=== PATIENT | male | born 1960 | race Caucasian/White ===

== ENCOUNTER 2024-04-22 15:40 | Emergency (ER) | payer MEDICAID ==
[~2024-04-22] VITALS: Ht 182.9 cm; Wt 63.6 kg
[2024-04-22 15:44] VITALS: BP 112/72; PULSE 97; RESP 22; TEMP 98.5; O2SAT 91
[2024-04-22 16:32] LABS: BASOPHILS % (AUTO) 0.3 % (0-1); EOSINOPHILS % (AUTO) 0.1 % (0-6); HEMATOCRIT 44.2 % (42.0-52.0); HEMOGLOBIN 14.8 g/dl (14.0-17.9); LYMPHOCYTES # (AUTO) 0.7 X10'3 (1.1-4.8); LYMPHOCYTES % (AUTO) 6.6 % (21-51); MEAN CORPUSCULAR HEMOGLOBIN 33.1 PG (27.0-31.0); MEAN CORPUSCULAR HGB CONC 33.5 g/dL (33.0-36.5); MEAN CORPUSCULAR VOLUME 98.8 FL (78-98); MEAN PLATELET VOLUME 9.4 FL (7.4-10.4); MONOCYTES # (AUTO) 1.3 X10'3 (0-0.9); MONOCYTES % (AUTO) 12.2 % (2-12); NEUTROPHILS # (AUTO) 8.4 X10'3 (1.8-7.7); NEUTROPHILS % (AUTO) 80.8 % (42-75); PLATELET COUNT 295 X10'3 (140-440); RED BLOOD COUNT 4.47 X10'6 (4.70-6.10); RED CELL DISTRIBUTION WIDTH 13.6 % (11.5-14.5); WHITE BLOOD COUNT 10.4 X10'3 (4.5-11.0)
[2024-04-22 16:42] LABS: ALANINE AMINOTRANSFERASE 388 U/L (12-78); ALBUMIN 3.4 G/DL (3.4-5.0); ALBUMIN/GLOBULIN RATIO 0.8 (1.1-1.5); ALKALINE PHOSPHATASE 425 IU/L (46-116); ANION GAP 5 (8-16); ASPARTATE AMINO TRANSFERASE 314 U/L (10-37); BILIRUBIN,TOTAL 0.9 MG/DL (0.1-1.0); BLOOD UREA NITROGEN 11 MG/DL (7-18); CALCIUM 9.8 MG/DL (8.5-10.1); CHLORIDE 99 MMOL/L (99-107); CREATININE 0.58 MG/DL (0.60-1.10); GLUCOSE 135 MG/DL (70-104); POTASSIUM 4.4 MMOL/L (3.5-5.1); SODIUM 133 MMOL/L (135-145); TOTAL CARBON DIOXIDE 28.8 MMOL/L (24-32); TOTAL PROTEIN 7.7 G/DL (6.4-8.2); eCRCL 116 ML/MIN; eGFR > 90 ML/MIN
[2024-04-22 16:53] LABS: FREE T4 (FREE THYROXINE) 1.18 NG/DL (0.73-1.40); PRO BRAIN NATRIURETIC PEPTIDE 449 PG/ML (0-125); THYROID STIMULATING HORMONE 0.77 ulU/ml (0.34-4.50)
[2024-04-22 16:53] LABS: APTT 30 SECONDS (22-32); PROTHROMBIN TIME 10.3 SECONDS (9.0-12.0)
[2024-04-23] MEDS ORDERED: BUPR150T8 PO (12:11)
[2024-04-23] MEDS ORDERED: CLON-850 PO (12:11)
[2024-04-23] MEDS ORDERED: BUPR1PAT TOP (12:16)
== END 2024-04-22 18:47 | disposition left against medical advice (07) ==
LOC: ER 15:41
DX: R06.02 Shortness of breath (principal); J44.9 Chronic obstructive pulmonary disease, unspecified; Z88.0 Allergy status to penicillin; Z53.21 Procedure and treatment not carried out due to patient leaving prior to being seen by health care provider
CPT/HCPCS: 36415; 71045; 80053; 83880; 84439; 84443; 84484; 85025; 85610; 85730; 93005

== ENCOUNTER 2024-04-22 22:55 | Inpatient (IN) | payer MEDICAID ==
[~2024-04-22] VITALS: Ht 182.9 cm; Wt 65.9 kg
[2024-04-23] VITALS (18 sets, daily range): BP systolic 110–129; BP diastolic 63–77; PULSE 61–104; RESP 16–22; TEMP 97.4–98.5; O2SAT 92–98
[2024-04-23] MEDS: ipratropium/albuterol 3ml nebule NEB ONE (00:42)
[2024-04-23 00:45] LABS: BASOPHILS % (AUTO) 0.1 % (0-1); EOSINOPHILS % (AUTO) 0 % (0-6); HEMOGLOBIN 14.1 g/dl (14.0-17.9); LYMPHOCYTES # (AUTO) 0.5 X10'3 (1.1-4.8); MEAN CORPUSCULAR HEMOGLOBIN 32.8 PG (27.0-31.0); MEAN CORPUSCULAR HGB CONC 33.5 g/dL (33.0-36.5); MEAN CORPUSCULAR VOLUME 97.9 FL (78-98); MEAN PLATELET VOLUME 8.6 FL (7.4-10.4); MONOCYTES # (AUTO) 1.9 X10'3 (0-0.9); MONOCYTES % (AUTO) 17.8 % (2-12); NEUTROPHILS # (AUTO) 8.2 X10'3 (1.8-7.7); NEUTROPHILS % (AUTO) 77.1 % (42-75); PLATELET COUNT 274 X10'3 (140-440); RED BLOOD COUNT 4.29 X10'6 (4.70-6.10); RED CELL DISTRIBUTION WIDTH 13.5 % (11.5-14.5); WHITE BLOOD COUNT 10.7 X10'3 (4.5-11.0)
[2024-04-23 01:04] LABS: ALBUMIN 3.2 G/DL (3.4-5.0); ANION GAP 9 (8-16); BLOOD UREA NITROGEN 16 MG/DL (7-18); BUN/CREATININE RATIO 24.2 (10.0-20.0); CALCIUM 9.5 MG/DL (8.5-10.1); CHLORIDE 99 MMOL/L (99-107); CREATININE 0.66 MG/DL (0.60-1.10); GLUCOSE 141 MG/DL (70-104); POTASSIUM 4.1 MMOL/L (3.5-5.1); PRO BRAIN NATRIURETIC PEPTIDE 363 PG/ML (0-125); SODIUM 135 MMOL/L (135-145); TOTAL CARBON DIOXIDE 27.5 MMOL/L (24-32); eCRCL 105 ML/MIN; eGFR > 90 ML/MIN
[2024-04-23] MEDS: methylPREDNISolone sod succ 125mg/2ml vial IV ONE (01:13)
[2024-04-23 01:19] LABS: PLATELET ESTIMATE NORMAL; TOTAL CELLS COUNTED 100
[2024-04-23] MEDS: CefTRIAXone/D5W-Rocephin 1gm 50 ML IV ONE (02:18)
[2024-04-23] MEDS: normal saline 1000ml 1,000 ML IV ONE (02:19)
[2024-04-23] MEDS ORDERED: morphine 2 MG/ML inj. syringe IV PRN (02:20)
[2024-04-23] MEDS: PERFLUTREN PROTEIN-A MICROSPHR (Optison) 0.22 MG/ML 3ML VIAL IV ONE ×2 (02:20→07:40)
[2024-04-23] MEDS ORDERED: potassium Cl 40MEQ/1/2NS 520ml 520 ML IV PRN (02:20)
[2024-04-23] MEDS ORDERED: magnesium sulf-water 4G/100mL 100 ML IV PRN (02:20)
[2024-04-23] MEDS ORDERED: HYDROcodone/acetaminophen 5mg/325mg tablet PO PRN (02:20)
[2024-04-23] MEDS ORDERED: magnesium Cl slow-release 64mg tablet PO PRN (02:20)
[2024-04-23] MEDS ORDERED: potassium Cl 20 mEq SR tablet PO PRN ×2 (02:20)
[2024-04-23] MEDS ORDERED: magnesium sulf-water 2g/50mL 50 ML IV PRN (02:20)
[2024-04-23] MEDS ORDERED: ondansetron/PF 4mg/2ml inj IV PRN (02:20)
[2024-04-23] MEDS ORDERED: mag hydrox/Alum hydrox/simeth 30ml oral suspension PO PRN (02:20)
[2024-04-23] MEDS ORDERED: acetaminophen 325mg tablet PO PRN ×2 (02:20)
[2024-04-23] MEDS ORDERED: magnesium hydroxide 30ml (MOM) UD suspension PO PRN (02:20)
[2024-04-23 02:57] LABS: D-DIMER 0.88 MG/L FEU (0-0.50)
[2024-04-23 03:00] LABS: HEMOGLOBIN A1C 5.1 % (4.5-6.2)
[2024-04-23] MEDS: normal saline 1000ml 1,000 ML IV SCH (03:31)
[2024-04-23 03:36] LABS: POTASSIUM 4.1 MMOL/L (3.5-5.1)
[2024-04-23 05:28] LABS: BILIRUBIN,URINE SMALL (Neg); CLARITY,URINE SLIGHTLY CLOUDY (Clear); COLOR,URINE YELLOW (Yellow); GLUCOSE, URINE NEGATIVE (Neg); KETONES,URINE TRACE mg/dl (Neg); LEUKOCYTE ESTERASE ,URINE NEGATIVE (Neg); NITRITES, URINE NEGATIVE (Neg); OCCULT BLOOD,URINE NEGATIVE (Neg); PROTEIN,URINE 100 mg/dl (Neg); UA COLLECTION TYPE URINAL
[2024-04-23 05:37] LABS: COARSE GRANULAR CAST 0-3 /LPF (NEGATIVE); SQUAMOUS EPITHELIAL CELL,UR FEW /LPF (FEW)
[2024-04-23 05:39] LABS: BACTERIA,URINE FEW /HPF (Neg); RBC,URINE NONE SEEN /HPF (0-2); WBC,URINE 0-4 /HPF (0-4)
[2024-04-23] MEDS: ipratropium/albuterol 3ml nebule NEB SCH (07:04)
[2024-04-23] MEDS ORDERED: ipratropium/albuterol 3ml nebule NEB PRN (07:35)
[2024-04-23] MEDS: K and/or MAG REPLACEMENT MC SCH (08:00)
[2024-04-23] MEDS ORDERED: methylPREDNISolone sod succ 125mg/2ml vial IV SCH ×2 (08:00)
[2024-04-23] MEDS: enoxaparin 40mg/0.4ml syringe SUBCUT SCH (08:00)
[2024-04-23] MEDS: guaiFENesin ER 600mg tablet PO SCH (10:10)
[2024-04-23] MEDS: methylPREDNISolone sod succ 125mg/2ml vial IV SCH (10:10)
[2024-04-23] MEDS: azithromycin/NS 500mg/250ml 250 ML IV SCH (10:10)
[2024-04-23] MEDS: docusate sod 100mg capsule PO SCH (10:10)
[2024-04-23] MEDS ORDERED: CLON-850 PO (12:11)
[2024-04-23] MEDS ORDERED: BUPR150T8 PO (12:11)
[2024-04-23] MEDS ORDERED: BUPR1PAT TOP (12:16)
[2024-04-23] MEDS: HYDROcodone/acetaminophen 10/325mg tab PO PRN (15:41)
[2024-04-23] MEDS: CefTRIAXone/D5W-Rocephin 1gm 50 ML IV SCH (20:23)
[2024-04-24] VITALS (18 sets, daily range): BP systolic 104–141; BP diastolic 61–68; PULSE 70–131; RESP 15–18; TEMP 97.1–98.6; O2SAT 16–97
[2024-04-24 05:42] LABS: BASOPHILS % (AUTO) 0.1 % (0-1); EOSINOPHILS % (AUTO) 0.1 % (0-6); HEMATOCRIT 35.7 % (42.0-52.0); HEMOGLOBIN 11.9 g/dl (14.0-17.9); LYMPHOCYTES # (AUTO) 1.3 X10'3 (1.1-4.8); LYMPHOCYTES % (AUTO) 15.9 % (21-51); MEAN CORPUSCULAR HEMOGLOBIN 32.6 PG (27.0-31.0); MEAN CORPUSCULAR HGB CONC 33.3 g/dL (33.0-36.5); MEAN CORPUSCULAR VOLUME 97.8 FL (78-98); MEAN PLATELET VOLUME 8.6 FL (7.4-10.4); MONOCYTES # (AUTO) 1.2 X10'3 (0-0.9); MONOCYTES % (AUTO) 14.6 % (2-12); NEUTROPHILS # (AUTO) 5.7 X10'3 (1.8-7.7); NEUTROPHILS % (AUTO) 69.3 % (42-75); PLATELET COUNT 260 X10'3 (140-440); RED BLOOD COUNT 3.65 X10'6 (4.70-6.10); RED CELL DISTRIBUTION WIDTH 13.4 % (11.5-14.5); WHITE BLOOD COUNT 8.3 X10'3 (4.5-11.0)
[2024-04-24 05:48] LABS: PROTHROMBIN TIME 9.6 SECONDS (9.0-12.0)
[2024-04-24 05:58] LABS: ALANINE AMINOTRANSFERASE 220 U/L (12-78); ALBUMIN 2.3 G/DL (3.4-5.0); ALBUMIN/GLOBULIN RATIO 0.7 (1.1-1.5); ALKALINE PHOSPHATASE 275 IU/L (46-116); ANION GAP 6 (8-16); ASPARTATE AMINO TRANSFERASE 87 U/L (10-37); BILIRUBIN,TOTAL 0.3 MG/DL (0.1-1.0); BLOOD UREA NITROGEN 16 MG/DL (7-18); BUN/CREATININE RATIO 30.2 (10.0-20.0); CALCIUM 8.9 MG/DL (8.5-10.1); CHLORIDE 104 MMOL/L (99-107); CHOL/HDL RATIO 2.5 (0.00-4.99); CHOLESTEROL 148 MG/DL (0-200); CREATININE 0.53 MG/DL (0.60-1.10); GLUCOSE 146 MG/DL (70-104); HDL CHOLESTEROL 60 MG/DL (35-60); LDL CHOLESTEROL 55 MG/DL (50-100); MAGNESIUM 1.8 MG/DL (1.5-2.4); PHOSPHORUS 2.7 MG/DL (2.3-4.5); SODIUM 138 MMOL/L (135-145); TOTAL CARBON DIOXIDE 27.6 MMOL/L (24-32); TOTAL PROTEIN 5.8 G/DL (6.4-8.2); TRIGLYCERIDES 46 MG/DL (20-135); eCRCL 131 ML/MIN; eGFR > 90 ML/MIN
[2024-04-24 06:11] LABS: INR 0.9 INR
[2024-04-24] MEDS: albuterol 2.5 MG/3 ML nebule NEB PRN (16:28)
[2024-04-24] MEDS: pantoprazole 40mg Tablet.DR PO SCH (19:26)
[2024-04-24] MEDS ORDERED: buPROPion SR 150mg tablet PO SCH (22:20)
[2024-04-24] MEDS: clonazePAM 1mg tablet PO SCH (22:30)
[2024-04-25] VITALS (14 sets, daily range): BP systolic 96–133; BP diastolic 52–82; PULSE 67–141; RESP 15–20; TEMP 97.4–98; O2SAT 90–94
[2024-04-25 06:41] LABS: INR 0.9 INR; PROTHROMBIN TIME 9.8 SECONDS (9.0-12.0)
[2024-04-25 06:50] LABS: BASOPHILS % (AUTO) 0.1 % (0-1); EOSINOPHILS # (AUTO) 0.1 X10'3 (0-0.9); HEMATOCRIT 36.4 % (42.0-52.0); HEMOGLOBIN 11.9 g/dl (14.0-17.9); LYMPHOCYTES # (AUTO) 2.6 X10'3 (1.1-4.8); LYMPHOCYTES % (AUTO) 31.7 % (21-51); MEAN CORPUSCULAR HEMOGLOBIN 32.3 PG (27.0-31.0); MEAN CORPUSCULAR HGB CONC 32.7 g/dL (33.0-36.5); MEAN CORPUSCULAR VOLUME 98.7 FL (78-98); MEAN PLATELET VOLUME 8.6 FL (7.4-10.4); MONOCYTES % (AUTO) 12.9 % (2-12); NEUTROPHILS # (AUTO) 4.4 X10'3 (1.8-7.7); NEUTROPHILS % (AUTO) 54.3 % (42-75); PLATELET COUNT 310 X10'3 (140-440); RED BLOOD COUNT 3.69 X10'6 (4.70-6.10); RED CELL DISTRIBUTION WIDTH 13.4 % (11.5-14.5); WHITE BLOOD COUNT 8.1 X10'3 (4.5-11.0)
[2024-04-25 07:03] LABS: ALBUMIN 2.3 G/DL (3.4-5.0); ANION GAP 4 (8-16); BLOOD UREA NITROGEN 12 MG/DL (7-18); BUN/CREATININE RATIO 24.5 (10.0-20.0); CALCIUM 8.8 MG/DL (8.5-10.1); CHLORIDE 105 MMOL/L (99-107); CREATININE 0.49 MG/DL (0.60-1.10); GLUCOSE 91 MG/DL (70-104); MAGNESIUM 1.7 MG/DL (1.5-2.4); PHOSPHORUS 2.8 MG/DL (2.3-4.5); SODIUM 140 MMOL/L (135-145); TOTAL CARBON DIOXIDE 30.9 MMOL/L (24-32); eCRCL 142 ML/MIN; eGFR > 90 ML/MIN
[2024-04-25] MEDS ORDERED: magnesium sulf-water 4G/100mL 100 ML IV PRN (07:50)
[2024-04-25] MEDS ORDERED: magnesium Cl slow-release 64mg tablet PO PRN ×2 (07:50)
[2024-04-25] MEDS ORDERED: magnesium sulf-water 2g/50mL 50 ML IV PRN (07:50)
[2024-04-25] MEDS ORDERED: potassium Cl 20 mEq SR tablet PO PRN ×4 (07:50)
[2024-04-25] MEDS ORDERED: potassium Cl 40MEQ/1/2NS 520ml 520 ML IV PRN (07:50)
[2024-04-25] MEDS: K and/or MAG REPLACEMENT MC SCH (08:00)
[2024-04-25] MEDS ORDERED: clonazePAM 1mg tablet PO SCH (08:00)
[2024-04-25] MEDS: buPROPion SR 150mg tablet PO SCH (08:00)
[2024-04-25] MEDS ORDERED: enoxaparin 40mg/0.4ml syringe SUBCUT SCH (08:00)
[2024-04-25] MEDS ORDERED: buPROPion SR 150mg tablet PO SCH (08:00)
[2024-04-25] MEDS: diltiazem 5mg/ml 5ml inj. IV ONE ×3 (09:10→11:39)
[2024-04-25] MEDS: magnesium sulf-water 4G/100mL 100 ML IV ONE (09:11)
[2024-04-25] MEDS: diltiazem 30mg tablet PO SCH (09:11)
[2024-04-25] MEDS: enoxaparin 60mg/0.6ml syringe SUBCUT SCH (10:13)
[2024-04-25] MEDS ORDERED: diltiazem-NS 100mg/100ml 100 ML IV SCH (11:30)
[2024-04-25 12:29] LABS: FREE T4 (FREE THYROXINE) 0.97 NG/DL (0.73-1.40); THYROID STIMULATING HORMONE 1.05 ulU/ml (0.34-4.50)
[2024-04-25] MEDS: diltiazem-NS 100mg/100ml 100 ML IV SCH (14:10)
[2024-04-25] MEDS: levalbuterol 0.63mg/3ml nebule IH SCH (16:09)
[2024-04-26] VITALS (9 sets, daily range): BP systolic 136–139; BP diastolic 79–89; PULSE 72–84; RESP 14–18; TEMP 97.4–97.5; O2SAT 92–96
[2024-04-26 06:01] LABS: BASOPHILS % (AUTO) 0.6 % (0-1); EOSINOPHILS # (AUTO) 0.1 X10'3 (0-0.9); LYMPHOCYTES # (AUTO) 2.2 X10'3 (1.1-4.8); LYMPHOCYTES % (AUTO) 29.1 % (21-51); MEAN CORPUSCULAR HEMOGLOBIN 32.2 PG (27.0-31.0); MEAN CORPUSCULAR HGB CONC 32.4 g/dL (33.0-36.5); MEAN CORPUSCULAR VOLUME 99.4 FL (78-98); MEAN PLATELET VOLUME 8.4 FL (7.4-10.4); MONOCYTES # (AUTO) 1.1 X10'3 (0-0.9); MONOCYTES % (AUTO) 14.8 % (2-12); NEUTROPHILS # (AUTO) 4.2 X10'3 (1.8-7.7); NEUTROPHILS % (AUTO) 54.5 % (42-75); PLATELET COUNT 358 X10'3 (140-440); RED BLOOD COUNT 3.72 X10'6 (4.70-6.10); RED CELL DISTRIBUTION WIDTH 13.6 % (11.5-14.5); WHITE BLOOD COUNT 7.7 X10'3 (4.5-11.0)
[2024-04-26 06:06] LABS: PROTHROMBIN TIME 10.2 SECONDS (9.0-12.0)
[2024-04-26 06:15] LABS: ALBUMIN 2.2 G/DL (3.4-5.0); ANION GAP 5 (8-16); BLOOD UREA NITROGEN 21 MG/DL (7-18); BUN/CREATININE RATIO 40.4 (10.0-20.0); CALCIUM 8.7 MG/DL (8.5-10.1); CHLORIDE 106 MMOL/L (99-107); CREATININE 0.52 MG/DL (0.60-1.10); GLUCOSE 95 MG/DL (70-104); PHOSPHORUS 3.2 MG/DL (2.3-4.5); POTASSIUM 4.2 MMOL/L (3.5-5.1); SODIUM 142 MMOL/L (135-145); TOTAL CARBON DIOXIDE 31.3 MMOL/L (24-32); eCRCL 134 ML/MIN; eGFR > 90 ML/MIN
[2024-04-26 08:47] LABS: PLATELET ESTIMATE NORMAL; TOTAL CELLS COUNTED 100
[2024-04-26] MEDS ORDERED: DILT-88 PO (12:41)
[2024-04-26] MEDS ORDERED: CEFD300C3 PO (12:41)
[2024-04-26] MEDS ORDERED: ALBU18HF2 INH (13:02)
[2024-04-26] MEDS ORDERED: LACT1CAP26 PO (13:09)
[2024-04-26] MEDS ORDERED: PRED10TA23 PO (13:09)
[2024-04-26] MEDS ORDERED: AZIT500T PO (13:09)
[2024-04-26] MEDS ORDERED: ASPI81TA52 PO (13:11)
[2024-04-26] MEDS ORDERED: PANT40TA54 PO (13:12)
== END 2024-04-26 14:55 | disposition home or self-care (01) | DRG 133 ==
LOC: ER 22:56 → ED HOLD 04-23 02:38 → EDBEDREQ 04-23 08:51 → SUR 3N 04-23 10:44 → PCU 3S 04-25 08:48
PROVIDERS: ADMIT Internal Medicine Critical Care Medicine; ATTEND Family Medicine
DX: J96.01 Acute respiratory failure with hypoxia (principal); J18.9 Pneumonia, unspecified organism; E44.1 Mild protein-calorie malnutrition; J44.0 Chronic obstructive pulmonary disease with (acute) lower respiratory infection; E88.09 Other disorders of plasma-protein metabolism, not elsewhere classified; I48.91 Unspecified atrial fibrillation; Z20.822 Contact with and (suspected) exposure to COVID-19; R74.01 Elevation of levels of liver transaminase levels; R73.9 Hyperglycemia, unspecified; J44.1 Chronic obstructive pulmonary disease with (acute) exacerbation; Z88.0 Allergy status to penicillin; Z86.73 Personal history of transient ischemic attack (TIA), and cerebral infarction without residual deficits; Z87.891 Personal history of nicotine dependence; Z68.1 Body mass index [BMI] 19.9 or less, adult
CPT/HCPCS: 36415; 71045; 80048; 80053; 80061; 81001; 83036; 83605; 83735; 83880; 84100; 84132; 84145; 84439; 84443; 84484; 85007; 85025; 85379; 85610; 87070; 87081; 87811; 93005; 93306; 94640; 94760; 99291; A4615; G0378; J0456; J0696; J1650; J2919; J3475; J3490; J7030; J7614

== ENCOUNTER 2024-10-10 21:14 | Emergency (ER) | payer MEDICAID ==
[~2024-10-10] VITALS: Ht 182.9 cm; Wt 65.8 kg
[~2024-10-10 21:14] MED LIST: ALBU18HF2 INH; BUPR150T8 PO; BUPR1PAT TOP; CEFD300C3 PO; CLON-850 PO; DILT-88 PO; LACT1CAP26 PO; PANT40TA54 PO
[2024-10-10 21:20] VITALS: TEMP 99
[2024-10-10 21:43] LABS: BASOPHILS % (AUTO) 0.4 % (0-1); EOSINOPHILS # (AUTO) 0.1 X10'3 (0-0.9); EOSINOPHILS % (AUTO) 0.5 % (0-6); HEMATOCRIT 42.4 % (42.0-52.0); HEMOGLOBIN 13.9 g/dl (14.0-17.9); LYMPHOCYTES % (AUTO) 8.8 % (21-51); MEAN CORPUSCULAR HEMOGLOBIN 31.9 PG (27.0-31.0); MEAN CORPUSCULAR HGB CONC 32.8 g/dL (33.0-36.5); MEAN CORPUSCULAR VOLUME 97.2 FL (78-98); MEAN PLATELET VOLUME 9.1 FL (7.4-10.4); MONOCYTES # (AUTO) 1.7 X10'3 (0-0.9); MONOCYTES % (AUTO) 14.5 % (2-12); NEUTROPHILS % (AUTO) 75.8 % (42-75); PLATELET COUNT 255 X10'3 (140-440); RED BLOOD COUNT 4.36 X10'6 (4.70-6.10); RED CELL DISTRIBUTION WIDTH 13.7 % (11.5-14.5); WHITE BLOOD COUNT 11.9 X10'3 (4.5-11.0)
[2024-10-10 21:54] LABS: CHLORIDE 100 MMOL/L (99-107)
[2024-10-10 22:15] LABS: ALANINE AMINOTRANSFERASE 26 U/L (12-78); ALBUMIN 3.6 G/DL (3.4-5.0); ALBUMIN/GLOBULIN RATIO 1.1 (1.1-1.5); ALKALINE PHOSPHATASE 114 IU/L (46-116); ANION GAP 8 (8-16); ASPARTATE AMINO TRANSFERASE 23 U/L (10-37); BILIRUBIN,TOTAL 0.8 MG/DL (0.1-1.0); BLOOD UREA NITROGEN 9 MG/DL (7-18); BUN/CREATININE RATIO 13.6 (10.0-20.0); CALCIUM 9.6 MG/DL (8.5-10.1); CREATININE 0.66 MG/DL (0.60-1.10); GLUCOSE 127 MG/DL (70-104); POTASSIUM 4.5 MMOL/L (3.5-5.1); SODIUM 136 MMOL/L (135-145); TOTAL CARBON DIOXIDE 27.9 MMOL/L (24-32); eCRCL 104 ML/MIN; eGFR > 90 ML/MIN
[2024-10-10 22:21] LABS: PRO BRAIN NATRIURETIC PEPTIDE 377 PG/ML (0-125)
[2024-10-10] MEDS ORDERED: LEVO-65 PO (22:55)
[2024-10-10] MEDS: levoFLOXACIN 750MG TABLET PO ONE (23:21)
[2024-10-10 23:27] VITALS: BP 149/88; PULSE 93; RESP 16; O2SAT 94
== END 2024-10-10 23:33 | disposition home or self-care (01) ==
LOC: ER 21:15
DX: J18.9 Pneumonia, unspecified organism (principal); Z88.0 Allergy status to penicillin; Z20.822 Contact with and (suspected) exposure to COVID-19
CPT/HCPCS: 36415; 71045; 80053; 83605; 83880; 84145; 84484; 85025; 87040; 87502; 87503; 87811; 93005; 99285